=== PATIENT | female | born 1975 | race Caucasian/White ===

== ENCOUNTER 2017-01-14 23:19 | Emergency (ER) | payer OTHER, BC ==
[2017-01-15] MEDS ORDERED: CLINDAMYCIN 150 MG CAPSULE PO STA (00:07)
[2017-01-15] MEDS ORDERED: CLINDAMYCIN 150 MG CAPSULE PO ONE (00:23)
[2017-01-15 00:31] VITALS: BP 115/71
--- NOTE | 2017-01-15 01:48 | ED Physician Documentation ---
History of Present Illness - Stated complaint Stated Complaint: RT WRIST PAIN - Chief complaint Chief Complaint: Ext Problem - History obtained from History obtained from: Patient - History of Present Illness Timing: Yesterday Improved by: rest Worsened by: movement, palpation - Additonal information Additional information: c/o atraumatic right wrist pain, swelling, and faint redness since yesterday. Denies injury. Two days ago, she baled hay although this is something she has done before without these symptoms Review of Systems Constitutional: denies: Fever Musculoskeletal: reports: Extremity pain, Extremity swelling Neurologic: denies: Focal weakness, Numbness PD PAST MEDICAL HISTORY - Past Medical History Past Medical History: No - Past Surgical History Past Surgical History: Yes - Present Medications Home Medications: Ambulatory Orders Medication Instructions Recorded Confirmed Albuterol Sulfate [Proair Hfa 1 puffs IH QID PRN 04/23/14 04/23/14 Inhaler] Albuterol [Ventolin Hfa] 2 puffs INH Q4H PRN #1 inhaler 04/23/14 guaiFENesin/CODEINE [Robitussin AC] 5 - 10 ml PO Q6H PRN #120 ml 04/23/14 predniSONE [Deltasone] 60 mg PO DAILY 5 Days 04/23/14 Clindamycin HCl 300 mg PO Q6HR 7 Days 01/15/17 - Allergies Allergies/Adverse Reactions: Allergies Allergy/AdvReac Type Severity Reaction Status Date / Time amoxicillin [Amoxicillin] Allergy Rash Verified 01/14/17 23:26 - Social History Does the pt smoke?: No Smoking Status: Never smoker Does the pt drink ETOH?: No Does the pt have substance abuse?: No - Immunizations Immunizations are current?: Yes - POLST Patient has POLST: No PD ED PE NORMAL - Vitals Vital signs reviewed: Yes - General General: Alert and oriented X 3, No acute distress, Well developed/nourished - Neuro Neuro: No motor deficit, No sensory deficit PD ED PE EXPANDED - Extremities Extremities: Other (FROM right wrist (flexion, extension, supination, pronation , ulnar and radial deviation), but increased pain with ROM. ) MAYRA UE/Hands Visual: 1 - tenderness (mild tednerness, mild swelling, faint erythema without sharp margins. No fluctuance, not hot to touch) Results - Vitals Vitals: Vital Signs - 24 hr 01/14/17 01/15/17 23:24 00:29 Heart Rate 72 66 Respiratory 16 18 Rate Blood Pressure 144/72 H 115/71 O2 Saturation 96 98 Oxygen O2 Source Room air PD MEDICAL DECISION MAKING - ED course Complexity details: considered differential, d/w patient Departure - Departure Disposition: 01 Home, Self Care Clinical Impression: Arthritis Cellulitis Qualifiers: Site of cellulitis: extremity Site of cellulitis of extremity: upper extremity Laterality: right Qualified Code(s): L03.113 - Cellulitis of right upper limb Condition: Good Instructions: ED Infec Skin Cellulitis, ED Degenerative Joint Disease Follow-Up: Mary Ann Rashid MD [Provider Admit Priv/Credential] - (3-5 days if symptoms persist) Prescriptions: Clindamycin HCl 300 mg PO Q6HR 7 Days Discharge Date/Time: 01/15/17 00:31
== END 2017-01-15 00:31 | disposition home or self-care (01) ==
LOC: ED 23:19
DX: M19.031 Primary osteoarthritis, right wrist (principal); L03.113 Cellulitis of right upper limb
CPT/HCPCS: 99283; A9270